=== PATIENT | female | born 1975 | race Caucasian/White ===

== ENCOUNTER 2018-02-14 07:21 | Emergency (ER) | payer BC ==
[~2018-02-14] VITALS: Ht 160 cm; Wt 69.4 kg
--- NOTE | 2018-02-14 07:37 | NUR ---
wound was checked per dr hoff, i then placed a dressing to rt buttock wound, pt was d/c'df home, aci/rx x1 given. pt ambulated w/o diff/took all belongings.
[2018-02-14 07:39] VITALS: BP 120/71
== END 2018-02-14 07:40 | disposition home or self-care (01) ==
LOC: ER 07:21
DX: L02.31 Cutaneous abscess of buttock (principal); L03.317 Cellulitis of buttock; S31.811D Laceration without foreign body of right buttock, subsequent encounter; L08.9 Local infection of the skin and subcutaneous tissue, unspecified; Z88.6 Allergy status to analgesic agent; Z88.1 Allergy status to other antibiotic agents; X58.XXXD Exposure to other specified factors, subsequent encounter
CPT/HCPCS: A4663

== ENCOUNTER 2018-05-26 10:37 | Emergency (ER) | payer BC ==
[~2018-05-26] VITALS: Ht 157.5 cm; Wt 70.3 kg
[2018-05-26] MEDS ORDERED: TRAZODONE (10:52)
[2018-05-26] MEDS ORDERED: SERT50TA14 (10:52)
[2018-05-26] MEDS ORDERED: TOPAMAX (10:52)
--- NOTE | 2018-05-26 10:54 | NUR ---
PT A/OX4, PRESENTS TO THE ER C/O LOW BACK PAIN. PT REPORTS LOW BACK PAIN IS NON-PROVOKED, ACHING IN QUALITY, RADIATES DOWN THE L THIGH AND L KNEE, 8/10, CONSTANT. PT DENIES FALL/INJURY. VSS. PT DENIES C/P, SOB, N/V/D, DIZZINESS, HEADACHE.
--- NOTE | 2018-05-26 11:17 | NUR ---
Patient discharged to home in stable conditon. Written and verbal after care instructions given. Patient verbalizes understanding of instructions. ALL BELONGINGS W/ PT. PT SELF-AMBULATED W/O DIFFICULTY.
[2018-05-26 11:18] VITALS: BP 110/62
== END 2018-05-26 11:18 | disposition home or self-care (01) ==
LOC: ER 10:37
DX: M54.42 Lumbago with sciatica, left side (principal); Z88.8 Allergy status to other drugs, medicaments and biological substances; Z88.1 Allergy status to other antibiotic agents; Z79.899 Other long term (current) drug therapy
CPT/HCPCS: A4663

== ENCOUNTER 2024-08-11 13:41 | Emergency (ER) | payer BC, MEDICAID ==
[~2024-08-11] VITALS: Ht 154.9 cm; Wt 93.0 kg
[~2024-08-11 13:41] MED LIST: SERT50TA14; TOPAMAX; TRAZODONE
[2024-08-11] MEDS ORDERED: SERT-440 PO (14:03)
[2024-08-11] MEDS ORDERED: TOPI100T38 MT (14:03)
[2024-08-11] MEDS ORDERED: L-NO1TBD16 PO (14:03)
[2024-08-11] MEDS ORDERED: TRAZ150T75 PO (14:03)
[2024-08-11] MEDS ORDERED: KETOROLAC TROMETHAMINE 15 MG INJ ONE (14:21)
[2024-08-11] MEDS: KETOROLAC TROMETHAMINE 15 MG INJ IM ONE (14:29)
[2024-08-11] MEDS ORDERED: AMOX-430 PO (14:35)
[2024-08-11 14:56] VITALS: BP 107/48; TEMP 98.1; O2SAT 97
== END 2024-08-11 14:56 | disposition home or self-care (01) ==
LOC: ER 13:41
DX: J32.9 Chronic sinusitis, unspecified (principal); H92.02 Otalgia, left ear; J06.9 Acute upper respiratory infection, unspecified; F32.A Depression, unspecified; Z79.3 Long term (current) use of hormonal contraceptives; Z79.899 Other long term (current) drug therapy; Z88.1 Allergy status to other antibiotic agents; Z88.6 Allergy status to analgesic agent
CPT/HCPCS: 99283; 96372; J1885; A4606; A4663